=== PATIENT | male | born 1985 | race Caucasian/White ===

== ENCOUNTER 2016-09-04 09:01 | Emergency (ER) | payer MEDICAID ==
[2016-09-04 09:28] VITALS: BP 134/88
--- NOTE | 2016-09-04 09:54 | EDM.PDOC ---
ED HPI GENERAL MEDICAL PROBLEM - General Chief Complaint: Bite:Animal, Insect Stated Complaint: TICK BITE TO HEAD / [id number] Time Seen by Provider: 09/04/16 09:54 Source of Information: Reports: Patient History Limitations: Reports: No Limitations - History of Present Illness INITIAL COMMENTS - FREE TEXT/NARRATIVE: Pt bitten on upper back of head approx 2 days ago. Area was seeping clear fluid. Now swollen and tender with scab. Notes right cervical lymphadenopathy. No f/c. Right Head Pain Score (Numeric/FACES): 5 - Related Data Allergies Allergy/AdvReac Type Severity Reaction Status Date / Time Penicillins Allergy Other Verified 09/04/16 09:25 Past Medical History - Past Surgical History GI Surgical History: Reports: Appendectomy Dermatological Surgical History: Reports: Skin Graft Social & Family History - Family History Family Medical History: Noncontributory - Tobacco Use Smoking Status *Q: Current Every Day Smoker Years of Tobacco use: 12 Packs/Tins Daily: 0.5 Second Hand Smoke Exposure: Yes - Caffeine Use Caffeine Use: Reports: None - Recreational Drug Use Recreational Drug Use: No ED ROS GENERAL - Review of Systems Review Of Systems: See Below Constitutional: Reports: No Symptoms HEENT: Reports: Other (redness and swelling in area post scalp, initiate clear fluid drainage, now flaking scab) Respiratory: Reports: No Symptoms Cardiovascular: Reports: No Symptoms Endocrine: Reports: No Symptoms GI/Abdominal: Reports: No Symptoms Musculoskeletal: Reports: Neck Pain Skin: Reports: Other (redness/swelling post scalp area, redness into right side of neck) Neurological: Reports: No Symptoms Psychiatric: Reports: No Symptoms Hematologic/Lymphatic: Reports: Other (right anterioir cervical lymphadenopathy) ED EXAM, ANIMAL BITE - Physical Exam Exam: See Below Exam Limited By: No Limitations General Appearance: Alert Ears: Normal External Exam, Normal Canal, Hearing Grossly Normal, Normal TMs Nose: Normal Inspection, Normal Mucosa Throat/Mouth: Normal Inspection, Normal Lips, Normal Teeth, Normal Gums, Normal Oropharynx, Normal Voice, No Airway Compromise Head: Other (area approx 2cm post scalp with minimal erythema/edema and very slight dry scab noted. no active drainage) Neck: Other (right anterior cervical lymphadenopathy, tender right side of neck with faint hue erythema. full rom of neck without pain) Respiratory/Chest: No Respiratory Distress, Lungs Clear, Normal Breath Sounds Cardiovascular: Normal Peripheral Pulses, Regular Rate, Rhythm GI/Abdominal: Normal Bowel Sounds, Soft, Non-Tender Extremities: Normal Inspection, Normal Range of Motion Neurological: Alert, Oriented, CN II-XII Intact, Normal Cognition, Normal Reflexes, No Motor/Sensory Deficits Psychiatric: Normal Affect, Normal Mood Skin Exam: Other (see above notes) Lymphadenopathy: Right: Cervical Adenopathy Comments: no prasad/lyndon'sangeetha Course - Vital Signs Text/Narrative:: Pending are lyme titer and wound culture. Pt as reported penicillin allergy, unknown reaction (occurred as child). Will begin EES 250mg one po tid for 20 days. Take with snack/food. Will contact in regards to any positive lab results or need to change therapy. If progressive symptoms or concerns, return to ER. Patient pharmacy calls and his insurance will pay for 500mg EES. Will give EES 500mg bid for 20 days, take with food. Last Recorded V/S: Last Vital Signs Temp 37.0 C 09/04/16 09:26 Pulse 76 09/04/16 09:26 Resp 18 09/04/16 09:26 BP 134/88 09/04/16 09:26 Pulse Ox 97 09/04/16 09:26 - Orders/Labs/Meds Orders: Active Orders 24 hr Category Date Time Status CULTURE WOUND + SMEAR [RM] Stat Lab 09/04/16 10:07 Results LYME/B.BURGDORFERI IGG/IGM [REF] Stat Lab 09/04/16 10:02 Received Labs: Laboratory Tests 09/04/16 09/04/16 Range/Units 10:02 10:02 WBC 6.5 (5.0-10.0) 10^3/uL RBC 4.98 (4.6-6.2) 10^6/uL Hgb 16.6 (14.0-18.0) g/dL Hct 47.3 (40.0-54.0) % MCV 95.0 (80-100) fL MCH 33.3 (27.0-34.0) pg MCHC 35.1 H (33.0-35.0) g/dL Plt Count 248 (150-450) 10^3/uL C-Reactive Protein < 0.5 (0.0-1.3) mg/dL Departure - Departure Time of Disposition: 10:49 Disposition: Home, Self-Care 01 Condition: good Clinical Impression: Lyme disease, unspecified - Discharge Information Instructions: Lyme Disease Referrals: PCP,None [Ordering Only Provider] - Forms: ED Department Discharge Additional Instructions: Take your antibiotic as directed. Take it with a snack/food. You will be contacted with any positive lab results or need to change therapy. Return to the ER if progressive sign, symptoms or concerns. - My Orders Last 24 Hours: My Active Orders 09/04/16 10:02 LYME/B.BURGDORFERI IGG/IGM [REF] Stat 09/04/16 10:07 CULTURE WOUND + SMEAR [RM] Stat - Assessment/Plan Last 24 Hours: My Active Orders 09/04/16 10:02 LYME/B.BURGDORFERI IGG/IGM [REF] Stat 09/04/16 10:07 CULTURE WOUND + SMEAR [RM] Stat
== END 2016-09-04 11:00 | disposition home or self-care (01) ==
LOC: DL.ED 09:01
DX: A69.20 Lyme disease, unspecified (principal); F17.210 Nicotine dependence, cigarettes, uncomplicated; Z88.0 Allergy status to penicillin; Z90.49 Acquired absence of other specified parts of digestive tract; Z98.890 Other specified postprocedural states
CPT/HCPCS: 36415; 85027; 86140; 86618; 87070; 87077; 87186; 87205; 99282

== ENCOUNTER 2018-09-02 21:59 | Emergency (ER) | payer MEDICAID ==
[2018-09-02] MEDS ORDERED: Ondansetron 4 MG/2 ML SDV IV ONE (23:08)
[2018-09-02] MEDS ORDERED: fentaNYL 100 MCG/2 ML SDV IVPUSH ONE (23:08)
[2018-09-02] MEDS ORDERED: Sodium Chloride 0.9% 1,000 ML IV ONE (23:08)
[2018-09-02] MEDS ORDERED: fentaNYL 100 MCG/2 ML SDV ONE (23:10)
[2018-09-02] MEDS ORDERED: Ondansetron 4 MG/2 ML SDV ONE (23:11)
[2018-09-02 23:26] LABS: ANION GAP 13.4; CHLORIDE,CL 104 mmol/L (101-111); SODIUM,NA 137 mmol/L (135-145)
--- NOTE | 2018-09-03 00:11 | EDM.PDOC ---
ED HPI GENERAL MEDICAL PROBLEM - General Chief Complaint: Abdominal Pain Stated Complaint: ABD PAIN Time Seen by Provider: 09/03/18 00:07 History Limitations: Reports: No Limitations - History of Present Illness INITIAL COMMENTS - FREE TEXT/NARRATIVE: no BM past 4 days after eating lot of fast foods since been busy preparing daughter's graduation. today ate pizza and got worse with N&V. Right Upper Abdomen Pain Score (Numeric/FACES): 5 - Related Data Allergies Allergy/AdvReac Type Severity Reaction Status Date / Time Penicillins Allergy Other Verified 09/04/16 09:25 Past Medical History - Past Surgical History GI Surgical History: Reports: Appendectomy Dermatological Surgical History: Reports: Skin Graft Social & Family History - Family History Family Medical History: Noncontributory - Tobacco Use Smoking Status *Q: Current Every Day Smoker Years of Tobacco use: 16 Packs/Tins Daily: 20 Second Hand Smoke Exposure: No - Caffeine Use Caffeine Use: Reports: Coffee, Soda, Tea - Alcohol Use Date of Last Drink: 08/19/18 - Recreational Drug Use Recreational Drug Use: No ED ROS GENERAL - Review of Systems Review Of Systems: ROS reveals no pertinent complaints other than HPI. ED EXAM, GI/ABD - Physical Exam Exam: See Below Exam Limited By: No Limitations General Appearance: Alert, WD/WN, Mild Distress, Other (cramps) Ears: Hearing Grossly Normal Throat/Mouth: Normal Voice, No Airway Compromise Head: Atraumatic Neck: Non-Tender, Full Range of Motion Respiratory/Chest: No Respiratory Distress Cardiovascular: Regular Rate, Rhythm GI/Abdominal Exam: Tender, Other (RLQ region BS hyper). No: Distended, Guarding , Rigid, Rebound Neurological: Alert, Oriented, Normal Cognition, Normal Gait, No Motor/Sensory Deficits Psychiatric: Other (distraught) Skin Exam: Warm, Dry, Normal Color Lymphatic: No Adenopathy Course - Vital Signs Last Recorded V/S: Last Vital Signs Temp 36.3 C 09/02/18 22:48 Pulse 64 09/02/18 22:48 Resp 18 09/02/18 22:48 BP 111/71 09/02/18 22:48 Pulse Ox 99 09/02/18 22:48 - Orders/Labs/Meds Orders: Active Orders 24 hr Category Date Time Status KUB [Abdomen 1V Flat] [CR] Urgent Exams 09/02/18 22:51 Taken Sodium Chloride 0.9% [Normal Saline] 1,000 ml Med 09/02/18 23:08 Active IV .BOLUS Medication Orders Sodium Chloride (Normal Saline) 1,000 mls @ 999 mls/hr IV .BOLUS ONE Stop: 09/03/18 00:08 Last Admin: 09/02/18 23:18 Dose: 999 mls/hr Labs: Laboratory Tests 09/02/18 09/02/18 Range/Units 22:56 22:56 WBC 12.9 H (5.0-10.0) 10^3/uL RBC 5.21 (4.6-6.2) 10^6/uL Hgb 17.3 (14.0-18.0) g/dL Hct 48.2 (40.0-54.0) % MCV 92.5 (80-100) fL MCH 33.2 (27.0-34.0) pg MCHC 35.9 H (33.0-35.0) g/dL Plt Count 250 (150-450) 10^3/uL Neut % (Auto) 73.9 (42.2-75.2) % Lymph % (Auto) 16.0 L (20.5-50.1) % [place] % (Auto) 7.3 (2-8) % Eos % (Auto) 2.6 (1.0-3.0) % Baso % (Auto) 0.2 (0.0-1.0) % Sodium 137 (135-145) mmol/L Potassium 3.4 L (3.6-5.0) mmol/L Chloride 104 (101-111) mmol/L Carbon Dioxide 23.0 (21.0-31.0) mmol/L Anion Gap 13.4 BUN 14 (7-18) mg/dL Creatinine 1.0 (0.6-1.3) mg/dL Est Cr Clr Drug Dosing 104.75 mL/min Estimated GFR (MDRD) > 60 BUN/Creatinine Ratio 14.00 Glucose 96 (74-105) mg/dL Calcium 9.7 (8.4-10.2) mg/dl Total Bilirubin 0.6 (0.2-1.0) mg/dL AST 21 (10-42) IU/L ALT 13 (10-60) IU/L Alkaline Phosphatase 64 (42-121) IU/L Total Protein 7.4 (6.7-8.2) g/dl Albumin 4.5 (3.2-5.5) g/dl Globulin 2.9 Albumin/Globulin Ratio 1.55 Amylase 64 (28-100) U/L Lipase 37 (22-51) U/L Meds: Medications Generic Name Dose Route Start Last Admin Trade Name Freq PRN Reason Stop Dose Admin Sodium Chloride 1,000 mls @ 999 mls/hr 09/02/18 23:08 09/02/18 23:18 Normal Saline IV 09/03/18 00:08 999 mls/hr .BOLUS ONE Administration Discontinued Medications Generic Name Dose Route Start Last Admin Trade Name Freq PRN Reason Stop Dose Admin Fentanyl 50 mcg 09/02/18 23:08 09/02/18 23:20 Sublimaze IVPUSH 09/02/18 23:09 50 mcg ONETIME ONE Administration Fentanyl Confirm 09/02/18 23:10 09/02/18 23:38 Sublimaze Administered 09/02/18 23:11 Not Given Dose 100 mcg .ROUTE .STK-MED ONE Ondansetron HCl 4 mg 09/02/18 23:08 09/02/18 23:18 Zofran IV 09/02/18 23:09 4 mg ONETIME ONE Administration Ondansetron HCl Confirm 09/02/18 23:11 09/02/18 23:38 Zofran Administered 09/02/18 23:12 Not Given Dose 4 mg .ROUTE .STK-MED ONE - Re-Assessments/Exams Free Text/Narrative Re-Assessment/Exam: 09/03/18 00:09 results discussed with pt who is better s/p IV + Rx Departure - Departure Time of Disposition: 00:10 Disposition: Home, Self-Care 01 Condition: Good Clinical Impression: Constipation by delayed colonic transit Abdominal pain Qualifiers: Abdominal location: right lower quadrant Qualified Code(s): R10.31 - Right lower quadrant pain Vomiting Qualifiers: Vomiting type: unspecified Vomiting Intractability: non-intractable Nausea presence: with nausea Qualified Code(s): R11.2 - Nausea with vomiting, unspecified - Discharge Information Instructions: Constipation, Adult, [id number] Additional Instructions: 1) avoid solid foods next 4 days 2) follow up at clinic rx given; bentyl 10mg bid prn cramps x 12 - My Orders Last 24 Hours: My Active Orders 09/02/18 22:51 KUB [Abdomen 1V Flat] [CR] Urgent 09/02/18 23:08 Sodium Chloride 0.9% [Normal Saline] 1,000 ml IV .BOLUS - Assessment/Plan Last 24 Hours: My Active Orders 09/02/18 22:51 KUB [Abdomen 1V Flat] [CR] Urgent 09/02/18 23:08 Sodium Chloride 0.9% [Normal Saline] 1,000 ml IV .BOLUS
[2018-09-03 00:25] VITALS: BP 124/87; PULSE 78
== END 2018-09-03 00:24 | disposition home or self-care (01) ==
LOC: DL.ED 21:59
DX: K59.01 Slow transit constipation (principal); R11.2 Nausea with vomiting, unspecified; F17.210 Nicotine dependence, cigarettes, uncomplicated; Z88.0 Allergy status to penicillin
CPT/HCPCS: 36415; 74018; 80053; 82150; 83690; 85025; 96361; 96374; 96375; 99284; J2405; J3010; J7030